=== PATIENT | female | born 1990 | race Caucasian/White ===

== ENCOUNTER 2019-04-25 10:41 | Emergency (ER) | payer SELFPAY ==
[~2019-04-25] VITALS: Ht 160 cm; Wt 84.1 kg
[~2019-04-25 10:41] MED LIST: PRENATAL ONE T1 EACH
[2019-04-25] MEDS ORDERED: ONDANSETRON HCL 4 MG/2 ML VIAL IVP ONE (12:00)
[2019-04-25] MEDS ORDERED: SODIUM CHLORIDE 0.9% 1,000 ML IV ONE ×2 (12:00→13:30)
[2019-04-25] MEDS ORDERED: ACETAMINOPHEN 500 MG TABLET PO ONE ×2 (12:00→13:30)
[2019-04-25] MEDS ORDERED: KETOROLAC TROMETHAMINE 30 MG/ML VIAL IVP ONE (12:00)
[2019-04-25 12:14] LABS: BASOPHILS % (AUTO) 0.3 % (0.0-2.0); EOSINOPHILS % (AUTO) 0.7 % (1.0-6.0); HEMATOCRIT 35.6 % (36-46); HEMOGLOBIN 11.5 g/dL (12.0-16.0); LYMPHOCYTES # (AUTO) 1.9 K/uL (1.0-4.8); LYMPHOCYTES % (AUTO) 16.3 % (22.0-44.0); MEAN CORPUSCULAR HGB CONC 32.3 G/dL (31.0-37.0); MEAN CORPUSCULAR VOLUME 87 fL (80-100); MONOCYTES # (AUTO) 0.9 K/uL (0.1-1.0); MONOCYTES % (AUTO) 7.7 % (2.0-9.0); NEUTROPHILS # (AUTO) 8.6 K/uL (1.8-7.7); PLATELET COUNT (AUTO) 305 K/uL (150-450); RED BLOOD CELL COUNT(AUTO) 4.11 MIL/uL (4.00-5.20); RED CELL DISTRIBUTION WIDTH 13.6 % (11.5-14.5)
[2019-04-25] MEDS ORDERED: CefTRIAXone 1 GM/DEXTROSE 50 ML IV ONE (12:45)
[2019-04-25] MEDS ORDERED: BUPIVACAINE HCL/PF 0.25% 10 ML VIAL INJ ONE (12:45)
[2019-04-25 12:55] LABS: ALANINE AMINOTRANSFERASE 29 U/L (12-78); ALBUMIN 3.8 g/dL (3.4-5.0); ALKALINE PHOSPHATASE 111 U/L (46-116); ANION GAP 12 mmol/L (8-16); ASPARTATE AMINOTRANSFERASE 18 U/L (15-37); BILIRUBIN,TOTAL 1.1 mg/dL (0.1-1.0); CALCIUM, TOTAL 9.1 mg/dL (8.8-10.5); CARBON DIOXIDE 26 mmol/L (22-29); CHLORIDE 103 mmol/L (98-107); CREATININE 0.68 mg/dL (0.60-1.30); GLOMERULAR FILTR. RATE CALC > 60 mL/min (>60); GLUCOSE,RANDOM 90 mg/dL (70-110); HCG,QUANTITATIVE < 1 mIU/mL (0-6); POTASSIUM 3.5 mmol/L (3.5-5.1); SODIUM SERUM 141 mmol/L (136-145); TOTAL PROTEIN, SERUM 8.2 g/dL (6.4-8.2)
[2019-04-25 13:12] LABS: UREA NITROGEN, BLOOD 16 mg/dL (7-18)
[2019-04-25 14:30] LABS: CSF TUBE NUMBER 1
[2019-04-25 14:31] LABS: APPEARANCE,CSF CLEAR (CLEAR); APPEARANCE2,CSF CLEAR (CLEAR); COLOR,CSF COLORLESS (COLORLESS); COLOR2,CSF COLORLESS (COLORLESS); CSF 2ND TUBE NUMBER TUBE NO.4
[2019-04-25 14:48] LABS: LYMPHOCYTES1,CSF 100 %; MONOCYTES1,CSF 0 %; NEUTROPHILS1,CSF 0 %
[2019-04-25 14:49] LABS: LYMPHOCYTES2,CSF 100 %; MONOCYTES2,CSF 0 %; NEUTROPHILS2,CSF 0 %
[2019-04-25 14:59] LABS: GLUCOSE, CSF 73 mg/dL (50-80); TOTAL PROTEIN, CSF 17 mg/dL (15-45)
[2019-04-25 17:23] VITALS: BP 109/75
[2019-04-25 17:45] LABS: OTHER CELLS,CSF 2ND 0
== END 2019-04-25 17:41 | disposition home or self-care (01) ==
LOC: EMS 10:43
DX: G44.209 Tension-type headache, unspecified, not intractable (principal); N61.0 Mastitis without abscess; Z90.89 Acquired absence of other organs
CPT/HCPCS: 36415; 62270; 80053; 82945; 84157; 84702; 85025; 87070; 87205; 89051; 93005; 96365; 96375; 99284; J0696; J1885; J2405; J3490; J7030